=== PATIENT | female | born 1950 | race Caucasian/White ===

== ENCOUNTER 2023-01-11 09:13 | Outpatient (AMB) | payer MEDICARE, SELFPAY ==
--- NOTE | 2023-01-11 09:21 | MHC.OFFWIV ---
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 She does note on December 23 she was seen in emergency department for shortness of breath she was negative for COVID at that time. Over the past week the ear fullness and sinus pain is worsened with some thicker needle discharge. She has tried several OTC medications with little relief. She has myasthenia gravis at baseline she is not experiencing any difficulty breathing or swallowing or focal weakness at this time. [facility] Social History Patient Tobacco Use Status: Never used Tobacco Review of Systems Const Reports as per HPI and Reports no additional complaints Eyes Reports no additional complaints ENT Reports no additional complaints and Reports as per HPI Card Reports as per HPI and Reports no additional complaints Resp Reports as per HPI and Reports no additional complaints Musc Reports no additional complaints and Reports as per HPI Skin/Breast Denies lesions Neuro Reports no additional complaints and Reports as per HPI Physical Exam Vital Signs: Last Vital Signs Temp 97.9 F 01/11/23 09:22 Pulse 72 01/11/23 09:22 BP 124/70 01/11/23 09:22 Pulse Ox 98 01/11/23 09:22 BMI result Body Mass Index 32.9 Const General: cooperative, comfortable, no acute distress and tired appearing Orientation/consciousness: patient oriented x3 HEENT Head: Yes normal to inspection Ears: hearing grossly normal bilaterally, external ears normal and left TM abnormal (Dull light reflex with clear fluid noted behind TM) Face and sinus: Yes normal facial exam and Yes sinus tenderness (maxiallary and frontal) Mouth: Normal oral and palatal mucosa present Throat: Yes posterior oropharynx normal Eyes Conjunctivae: conjunctivae normal Sclerae: sclerae normal Neck Neck: Yes no lymphadenopathy Resp Effort & Inspection: normal respiratory effort Auscultation: clear to auscultation bilaterally Cardio Rate: regular rate Rhythm: regular rhythm Heart sounds: S1 normal heart sound present and S2 normal heart sound present Neuro General: patient oriented x3 Extrem General: Yes no pedal edema Assessment & Plan Assessment & Plan (1) Sinusitis: Code(s): J32.9 - Chronic sinusitis, unspecified Qualifiers: Sinusitis location: maxillary Chronicity: acute Plan: Will treat for sinusitis with Augmentin. Viral swab collected today will report results as available can continue OTC medication as needed. Return to clinic if symptoms do not improve over the next 5-7 days or worsen in any way. Orders: Orders SARS-CoV2/FLU/RSV Today J32.9 - Chronic sinusitis, unspecified Medications: New amoxicillin-pot clavulanate 875-125 mg 1 tab PO Q12H 10 days 20 tabs 0RF Coding Level of Care Code Est Pt Level 3 (47973) Diagnoses Sinusitis J32.9 Sinusitis location: maxillary Chronicity: acute
[2023-01-11 09:22] VITALS: BP 124/70; PULSE 72; TEMP 36.6; O2SAT 98; BMI 32.9
== END 2023-01-11 09:44 | disposition home or self-care (01) ==
PROVIDERS: PCP Internal Medicine; Visit Provider Physician Assistant
DX: J32.9 Chronic sinusitis, unspecified (principal)
CPT/HCPCS: 99213

== ENCOUNTER 2023-01-11 09:50 | Outpatient (REF) | payer MEDICARE, SELFPAY ==
[2023-01-11 14:25] LABS: Influenza A PCR NEGATIVE (Negative); Influenza B PCR NEGATIVE (Negative); Resp Syncy Virus RNA Qual PCR NEGATIVE (Negative); SARS COV2 PCR INHOUSE NEGATIVE (Negative)
== END 2023-01-11 09:51 | disposition home or self-care (01) ==
LOC: HO.LAB 09:50
PROVIDERS: Visit Provider Physician Assistant
DX: J32.9 Chronic sinusitis, unspecified (principal); Z20.822 Contact with and (suspected) exposure to COVID-19
CPT/HCPCS: 0241U

== ENCOUNTER 2023-03-31 11:31 | Outpatient (AMB) | payer MEDICARE, SELFPAY ==
--- NOTE | 2023-03-31 13:05 | MHC.OFFWIV ---
Intake Vital Signs 03/31/23 13:07 Height 5 ft Weight 170 lb 8 oz BMI 33.3 BP 142/70 H Blood Pressure Location Lt brachial Position Sitting Pulse 69 Pulse Source Pulse Oximeter Temp 97.1 F Temp Source Temporal Artery Scan Pulse Oximetry (%) 98 Oxygen Delivery Method Room Air Intake Visit Reasons: EST/ear pain in both ears (lobby masked) Intake Note: pt is here today for ear pain in both ears started 2 weeks Patient Tobacco Use Status: Never used Tobacco Allergies Sulfa (Sulfonamide Antibiotics) Allergy (Intermediate, Verified 03/31/23 13:28) Unknown aspirin [ASPIRIN] Allergy (Unknown, Verified 03/31/23 13:07) UPSET STOMACH Medication List - Last Reconciled 03/31/23 by CHRISTIN Fenton albuterol sulfate 90 mcg/actuation inhalation amoxicillin-pot clavulanate 875-125 mg 1 tab PO Q12H 10 days atorvastatin 20 mg PO DAILY blood sugar diagnostic (FreeStyle Test strips) As directed duloxetine 60 mg PO DAILY fluticasone propionate 50 mcg/actuation sprays intranasal levothyroxine 112 mcg PO DAILY lisinopril 40 mg PO DAILY metformin 500 mg PO TID mycophenolate mofetil 1,000 mg PO BID pantoprazole 40 mg PO BID pyridostigmine bromide ER mg PO spironolactone 25 mg PO DAILY sucralfate 1 g PO QID Do you need a note to return to daycare/school/sports/work: Yes HPI HPI Comments History of Present Illness Details Patient is a 72-year-old female in today with a sick visit. She states that 2 weeks ago she started to feel headache, ear pain, sore throat, cough. She has used [id number] medication with limited effect. She has a past medical history significant for asthma, diabetes type 2, myasthenia gravis. She states that no one else at home is sick, has not traveled recently. Denies any dizziness, chest pain, shortness a breath, vomiting, diarrhea. Will obtain upper respiratory swab. PFSH Social History Patient Tobacco Use Status: Never used Tobacco Review of Systems Const Details: Constitutional : No Weight loss, No Fever, No Chills, Admits Fatigue, No Malaise ENT/Mouth : No sore throat, Admits bilateral ear pain. Admits sinus tenderness. Eyes: No Eye Pain, No Swelling, No Redness Cardiovascular : No Chest Pain, No SOB, No Dyspnea on Exertion, No Orthopnea, No Edema, No Palpitations Respiratory : No Cough, No Sputum, No Wheezing Gastrointestinal : No Nausea, No Vomiting, No Diarrhea, No Constipation, No abdominal Pain, No Hematochezia, No Melena Neuro : No Weakness, No Numbness, No Dizziness, No Headache All other systems reviewed and are negative Physical Exam Vital Signs: Last Vital Signs Temp 97.1 F 03/31/23 13:07 Pulse 69 03/31/23 13:07 BP 142/70 H 03/31/23 13:07 Pulse Ox 98 03/31/23 13:07 Oxygen Delivery Method Room Air 03/31/23 13:07 BMI result Body Mass Index 33.3 Patient vital signs reviewed stable Const Other: Appearance: Alert.? Oriented X3.? No acute distress.? Head: Normocephalic, atraumatic, no step-offs or deformities Eyes: Pupils equal, round and reactive to light.? ENT: Pharynx normal.?Sinus tenderness. Erythema and effusion of left TM. No mastoid tenderness. Neck: Normal inspection.? Neck supple.?Full ROM. CVS: Normal heart rate and rhythm.? Pulses normal.? Respiratory: No respiratory distress.? Breath sounds normal.? Neuro: Oriented X 3.? No motor deficit.? No sensory deficit. CN 2-12 intact Results Reviewed Results Reviewed: Will call patient with swab results. Assessment & Plan Assessment & Plan (1) Otitis media of left ear: Comment: Patient will be given Augmentin and prednisone to be taken as directed. Patient has been educated on signs of worsening symptoms and when to report back to the walk-in or when to present to the emergency room. Code(s): H66.92 - Otitis media, unspecified, left ear Qualifiers: Otitis media type: unspecified Qualified Code(s): H66.92 - Otitis media, unspecified, left ear Plan: Take your medications as prescribed. If you were prescribed antibiotics today, it is important that you take your medication to their entirety, do not skip any doses, do not finish them early. Follow-up with your primary care provider this week. Return to the emergency department with new or worsening symptoms. Such as fevers, chills, chest pain, shortness of breath, nausea, vomiting, dizziness, headache, vision changes, lethargy In case of emergency call 911 Coding Level of Care Code Est Pt Level 3 (12496) Diagnoses Left otitis media, unspecified otitis media type H66.92 Otitis media type: unspecified Time Spent (min) 20
[2023-03-31 13:07] VITALS: BP 142/70; PULSE 69; TEMP 36.2; O2SAT 98; BMI 33.3
== END 2023-03-31 14:16 | disposition home or self-care (01) ==
PROVIDERS: PCP Internal Medicine; Visit Provider Nurse Practitioner Primary Care
DX: H66.92 Otitis media, unspecified, left ear (principal)
CPT/HCPCS: 99213

== ENCOUNTER 2023-03-31 18:34 | Outpatient (REF) | payer MEDICARE, SELFPAY ==
[2023-03-31 19:30] LABS: Influenza A PCR NEGATIVE (Negative); Influenza B PCR NEGATIVE (Negative); Resp Syncy Virus RNA Qual PCR NEGATIVE (Negative); SARS COV2 PCR INHOUSE NEGATIVE (Negative)
== END 2023-03-31 18:35 | disposition home or self-care (01) ==
LOC: HO.HMGCLNP 18:34
PROVIDERS: Visit Provider Nurse Practitioner Primary Care
DX: J06.9 Acute upper respiratory infection, unspecified (principal); Z11.52 Encounter for screening for COVID-19
CPT/HCPCS: 0241U

== ENCOUNTER 2023-08-03 14:14 | Outpatient (AMB) | payer MEDICARE, SELFPAY ==
--- NOTE | 2023-08-03 14:18 | AM.OFFWIN_ITS ---
Intake Vital Signs 08/03/23 14:19 Height 5 ft Weight 174 lb BMI 34.0 BP 160/90 H Blood Pressure Location Lt brachial Position Sitting Pulse 95 Pulse Source Pulse Oximeter Temp 97.6 F Temp Source Temporal Artery Scan Pulse Oximetry (%) 96 Oxygen Delivery Method Room Air Intake Visit Reasons: EP chest/head congestion Intake Note: pt is here today for chest head congestion started 5 days ago Patient Tobacco Use Status: Never used Tobacco Allergies Sulfa (Sulfonamide Antibiotics) Allergy (Intermediate, Verified 08/03/23 14:23) Unknown aspirin [ASPIRIN] Allergy (Unknown, Verified 08/03/23 14:23) UPSET STOMACH Do you need a note to return to daycare/school/sports/work: No HPI HPI Comments History of Present Illness Details 73-year-old female who comes in today co mplaining of bilateral ear pain nasal congestion and a cough for 5 days. She denies any shortness a breath or chest pain but does have myalgias and fatigue PFSH Social History Patient Tobacco Use Status: Never used Tobacco Review of Systems Const Reports no additional complaints, Reports fatigue, Reports fever(s) and Reports malaise Eyes Reports no additional complaints ENT Reports otalgia and Reports nasal congestion Card Reports no additional complaints Resp Reports cough GI Reports no additional complaints Endo Reports fatigue Physical Exam Vital Signs: Last Vital Signs Temp 97.6 F 08/03/23 14:19 Pulse 95 08/03/23 14:19 BP 160/90 H 08/03/23 14:19 Pulse Ox 96 08/03/23 14:19 Oxygen Delivery Method Room Air 08/03/23 14:19 BMI result Body Mass Index 34.0 Const General: in distress HEENT Head: Yes normal to inspection, Yes normocephalic and Yes atraumatic Ears: hearing grossly normal bilaterally and TM abnormal (Right ear) bulging and erythematous General nose exam: Normal external nose present Face and sinus: Yes normal facial exam and Yes face symmetric Throat: Yes other (Posterior pharynx erythema) Resp Effort & Inspection: normal respiratory effort Auscultation: clear to auscultation bilaterally Cardio Rate: regular rate Rhythm: regular rhythm Heart sounds: S1 normal heart sound present and S2 normal heart sound present Results AMB Rapid Strep AMB Rapid Strep Negative Last Edit by Mary Anne Garcia CMA on 08/03/23 14:33 Results Reviewed Results Reviewed: Laboratory Last Values Strep Scn [facility] Negative 08/03/23 14:32 Rapid strep done in the office today was negative. Assessment & Plan Assessment & Plan (1) Sore throat: Code(s): J02.9 - Acute pharyngitis, unspecified Plan Going to send a viral swab for evaluation and treated for otitis media. Orders: Orders SARS-CoV2/FLU/RSV Today J02.9 - Acute pharyngitis, unspecified AMB Rapid Strep Screen Today Z13.9 - Encounter for screening, unspecified Medications: New amoxicillin 875 mg PO BID 14 tabs 0RF 7 days Coding Level of Care Code Est Pt Level 3 (12451) Diagnoses Sore throat J02.9
[2023-08-03 14:19] VITALS: BP 160/90; PULSE 95; TEMP 36.4; O2SAT 96; BMI 34.0
== END 2023-08-03 14:36 | disposition home or self-care (01) ==
PROVIDERS: PCP Internal Medicine; Visit Provider Physician Assistant Medical
DX: J02.9 Acute pharyngitis, unspecified (principal)
CPT/HCPCS: 87880; 99213

== ENCOUNTER 2023-08-03 14:32 | Outpatient (REF) | payer MEDICARE, SELFPAY ==
[2023-08-03 18:02] LABS: Influenza A PCR NEGATIVE (Negative); Influenza B PCR NEGATIVE (Negative); Resp Syncy Virus RNA Qual PCR NEGATIVE (Negative); SARS COV2 PCR INHOUSE NEGATIVE (Negative)
== END 2023-08-03 14:33 | disposition home or self-care (01) ==
LOC: HO.LAB 14:32
PROVIDERS: Visit Provider Physician Assistant Medical
DX: J02.9 Acute pharyngitis, unspecified (principal)
CPT/HCPCS: 0241U

== ENCOUNTER 2023-09-07 11:21 | Outpatient (AMB) | payer MEDICARE, SELFPAY ==
[2023-09-07 11:43] VITALS: BP 120/80; PULSE 74; TEMP 36.2; O2SAT 95; BMI 32.2
--- NOTE | 2023-09-07 11:43 | MHC.OFFWIV ---
Intake Vital Signs 09/07/23 11:43 Height 5 ft Weight 165 lb BMI 32.2 BP 120/80 Blood Pressure Location Lt brachial Position Sitting Pulse 74 Pulse Source Pulse Oximeter Temp 97.2 F Temp Source Temporal Artery Scan Pulse Oximetry (%) 95 Oxygen Delivery Method Room Air Intake Visit Reasons: EP Ear ache, sore throat, headache (masked) Intake Note: pt is here today for ear ache sore throat headache started 1 week ago Patient Tobacco Use Status: Never used Tobacco Allergies Sulfa (Sulfonamide Antibiotics) Allergy (Intermediate, Verified 09/07/23 11:46) Unknown aspirin [ASPIRIN] Allergy (Unknown, Verified 09/07/23 11:46) UPSET STOMACH Medication List - Last Reconciled 09/07/23 by CHRISTIN Fenton albuterol sulfate 90 mcg/actuation inhalation atorvastatin 20 mg PO DAILY blood sugar diagnostic (FreeStyle Test strips) As directed duloxetine 60 mg PO DAILY fluticasone propionate 50 mcg/actuation sprays intranasal levothyroxine 112 mcg PO DAILY lisinopril 40 mg PO DAILY metformin 500 mg PO TID mycophenolate mofetil 1,000 mg PO BID pantoprazole 40 mg PO BID pyridostigmine bromide ER mg PO spironolactone 25 mg PO DAILY sucralfate 1 g PO QID Do you need a note to return to daycare/school/sports/work: No HPI HPI Comments History of Present Illness Details Patient is a 73-year-old female in today for sick visit. Patient states that for the past week she has developed symptoms of cough, left ear pain, sinus tenderness. Patient has history of recurrent ear infections. States this feels similar to those in the past. Patient was seen in office for similar symptoms 1 month prior was given amoxicillin with moderate effect. Patient denies fevers or chills, denies chest pain or shortness of breath, denies nausea vomiting or diarrhea PFSH Social History Patient Tobacco Use Status: Never used Tobacco Review of Systems Const All systems reviewed & are unremarkable except as noted in HPI and below Denies chills, Denies fever(s) and Denies headache(s) Eyes Denies blurry vision and Denies diplopia ENT Denies vertigo, Denies dizziness, Reports otalgia, Denies headache(s) and Reports sore throat Card Denies chest pain and Denies dyspnea Resp Denies dyspnea GI Denies diarrhea, Denies nausea and Denies vomiting Neuro Denies vertigo, Denies dizziness and Denies headache(s) Physical Exam Vital Signs: Last Vital Signs Temp 97.2 F 09/07/23 11:43 Pulse 74 09/07/23 11:43 BP 120/80 09/07/23 11:43 Pulse Ox 95 09/07/23 11:43 Oxygen Delivery Method Room Air 09/07/23 11:43 BMI result Body Mass Index 32.2 Const Other: Appearance: Alert.? Oriented X3.? No acute distress.? Head: Normocephalic, Eyes: Pupils equal, round and reactive to light.?Sclera white. ENT: Pharynx erythema, +cobblestoned. Right TM intact and pearly haines. Left TM erythema and effusion. ? Neck: Normal inspection.? Neck supple.? CVS: Normal heart rate and rhythm.? Pulses normal.? Respiratory: No respiratory distress.? Breath sounds normal.? Neuro: Oriented X 3.? No motor deficit.? No sensory deficit. CN 2-12 intact Results AMB Rapid Strep AMB Rapid Strep Negative Last Edit by Samantha Jimenez MA on 09/07/23 12:31 Assessment & Plan Assessment & Plan (1) Otitis media of left ear: Comment: Patient will be given doxycycline. Patient has been educated the side effects of this medication. Patient has been educated on signs of worsening symptoms and when to report back to the walk-in or when to present to the ED Code(s): H66.92 - Otitis media, unspecified, left ear Qualifiers: Otitis media type: unspecified Qualified Code(s): H66.92 - Otitis media, unspecified, left ear Plan: Take your medications as prescribed. If you were prescribed antibiotics today, it is important that you take your medication to their entirety, do not skip any doses, do not finish them early. Follow-up with your primary care provider this week. Return to the emergency department with new or worsening symptoms. Such as fevers, chills, chest pain, shortness of breath, nausea, vomiting, dizziness, headache, vision changes, lethargy In case of emergency call 911 Plan follow up with PCP. Orders: Orders SARS-CoV2/FLU/RSV Today J06.9 - Acute upper respiratory infection, unspecified Medications: New doxycycline hyclate 100 mg PO BID 14 caps 0RF Coding Level of Care Code Est Pt Level 3 (05255) Diagnoses Left otitis media, unspecified otitis media type H66.92 Otitis media type: unspecified Time Spent (min) 23
== END 2023-09-07 12:42 | disposition home or self-care (01) ==
PROVIDERS: PCP Internal Medicine; Visit Provider Nurse Practitioner Primary Care
DX: H66.92 Otitis media, unspecified, left ear (principal)
CPT/HCPCS: 99213

== ENCOUNTER 2023-09-07 13:37 | Outpatient (REF) | payer MEDICARE, SELFPAY ==
[2023-09-07 14:52] LABS: Influenza A PCR NEGATIVE (Negative); Influenza B PCR NEGATIVE (Negative); Resp Syncy Virus RNA Qual PCR NEGATIVE (Negative); SARS COV2 PCR INHOUSE NEGATIVE (Negative)
== END 2023-09-07 13:38 | disposition home or self-care (01) ==
LOC: HO.LNP 13:37
PROVIDERS: Visit Provider Nurse Practitioner Primary Care
DX: J06.9 Acute upper respiratory infection, unspecified (principal)
CPT/HCPCS: 0241U

== ENCOUNTER 2024-01-11 10:00 | Emergency (ER) | payer MEDICARE, SELFPAY ==
--- NOTE | 2024-01-11 | ECG_ITS ---
Test Reason : epigastric pain Blood Pressure : / mmHG Vent. Rate : 087 BPM Atrial Rate : 087 BPM P-R Int : 164 ms QRS Dur : 074 ms QT Int : 330 ms P-R-T Axes : 072 014 072 degrees QTc Int : 397 ms Normal sinus rhythm Possible Inferior infarct , age undetermined Abnormal ECG When compared with ECG of 18-SEP-2011 10:50, Borderline criteria for Inferior infarct are now Present Referred By: Generic ED Physician Electronically Signed By:GENARO MARTINEZ
--- NOTE | ~2024-01-11 | CT_ITS ---
EXAMINATION: CT ABDOMEN AND PELVIS WITH CONTRAST CLINICAL INFORMATION: Right sided abdominal pain and tenderness COMPARISON: None available. TECHNIQUE: Multidetector volumetric images were obtained from the superior aspect of the liver through the pubic symphysis following administration 85 mL of Omnipaque 350 intravenous contrast. Sagittal and coronal reformatted images were obtained on the technologist's workstation. Oral contrast: No This CT examination was performed using dose optimization techniques as appropriate, variously including the following: *Automated exposure control *Adjustment of mA and/or kV according to patient size (this includes techniques or standardized protocols for targeted exams where dose is matched to indication/reason for exam; i.e. extremities or head) *Use of iterative reconstruction technique DLP: 525 mGy-cm FINDINGS: LUNG BASES: The visualized lung bases are unremarkable. LIVER, GALLBLADDER, AND BILIARY TREE: The liver is normal in size, shape, and attenuation. No focal hepatic lesion or biliary ductal dilatation is present. The gallbladder is unremarkable with no evidence of radiopaque gallstones, gallbladder wall thickening, or obvious pericholecystic inflammatory changes. PANCREAS: Unremarkable. SPLEEN: Unremarkable. ADRENAL GLANDS: Unremarkable. KIDNEYS AND URETERS: The kidneys are normal in size, shape, and attenuation. Bilateral benign Bosniak class I renal cysts are noted which require no additional imaging or follow-up. No solid renal masses are seen. No hydronephrosis, hydroureter, or calculi seen. No perinephric stranding. BLADDER: Unremarkable. GASTROINTESTINAL TRACT: The small and large bowel are unremarkable. The appendix is not identified with certainty but there is certainly no evidence to suggest the presence of appendicitis. ABDOMINAL WALL: No significant hernia is appreciated. LYMPH NODES: Normal. VASCULAR: Unremarkable. PELVIC VISCERA: Unremarkable. OSSEOUS STRUCTURES: Unremarkable. Degenerative changes are present in the spine. CT/CT abdomen pelvis w IV con IMPRESSION: A cause for the patient's right-sided abdominal pain and tenderness has not been found. Fleischner guidelines were followed. Electronically signed by: Juan A Piña MD 01/11/2024 03:49 PM EDT
[2024-01-11 10:02] VITALS: BP 121/65; PULSE 100; RESP 18; TEMP 36.4; O2SAT 98; BMI 29.5
[2024-01-11 10:25] LABS: MANUAL DIFF FLAG NO
[2024-01-11 10:43] LABS: Alanine Aminotransferase 10 U/L (0-31); Albumin Level 4.5 g/dL (3.5-5.0); Alkaline Phosphatase 72 U/L (39-117); Anion Gap 14 (12-20); Aspartate Amino Transferase 13 U/L (5-31); Basophils Percent Auto 0.4 % (0-2); Bilirubin Direct 0.2 mg/dL (0.0-0.5); Bilirubin Total 0.6 mg/dL (0.0-1.0); Blood Urea Nitrogen 18 mg/dL (9-16); Calcium 9.8 mg/dL (8.4-10.2); Carbon Dioxide 19 mmol/L (22-29); Chloride 109 mmol/L (96-108); Creatinine Clr Calc Pharmacy 36.5; Eosinophils Absolute Auto 0.2 X10*3/uL (0.0-0.4); Eosinophils Percent Auto 2.1 % (0-4); Estimated Glomerular Filt Rate 46; Glucose Random 196 mg/dL (60-115); Hematocrit 41.1 % (37.0-47.0); Hemoglobin 13.2 g/dl (12.0-16.0); Imm Gran Abs Auto 0.02 X10*3/uL (0.00-0.03); Imm Gran Pct Auto 0.2 % (0.0-0.4); Lipase 32 U/L (8-78); Lymphocytes Absolute Auto 2.1 X10*3/uL (1.2-4.9); Lymphocytes Percent Auto 25.3 % (20-40); Mean Corpuscular HGB Conc 32.1 g/dl (31.0-35.0); Mean Corpuscular Hemoglobin 29.1 pg (27.0-33.0); Mean Corpuscular Volume 90.7 fL (80.0-98.0); Mean Platelet Volume 11.2 fL (9.4-12.3); Monocytes Absolute Auto 0.9 X10*3/uL (0.1-1.2); Monocytes Percent Auto 10.1 % (2-11); Neutrophils Absolute Auto 5.2 x10*3/uL (2.0-8.3); Neutrophils Percent Auto 61.9 % (45-73); Platelet Count 246 X10*3/uL (160-400); Potassium 3.6 mmol/L (3.3-5.1); Red Blood Count 4.53 X10*6/uL (4.20-5.50); Red Cell Distribution Width 12.9 % (11.0-16.0); Sodium 138 mmol/L (135-145); Total Protein 6.9 g/dL (6.5-8.0); White Blood Count 8.4 X10*3/uL (4.8-10.8)
--- NOTE | 2024-01-11 11:42 | ED_ITS ---
HPI - General Adult General Chief complaint: Abdominal Pain Stated complaint: abd pain Time Seen by Provider: 01/11/24 11:42 History of Present Illness ED Provider: Constantine MOCTEZUMA narrative: The patient is a 73-year-old woman who comes to the emergency room with a complaint of upper abdominal pain that has been bothering her for several days. She says that a couple of weeks ago she also had bilateral flank pain. She had also had a period of loose yellow stools. She has had nausea and weakness. The patient has a history of gastritis and is on pantoprazole, famotidine, and sucralfate already. She has had no fevers, sweats, chills. Related Data Home Medications ?Medication ?Instructions ?Recorded ?Confirmed albuterol sulfate 90 mcg/actuation inhalation 01/11/23 09/07/23 aerosol inhaler atorvastatin 20 mg tablet 20 mg PO DAILY 01/11/23 09/07/23 blood sugar diagnostic (Freeyle #10 ea 01/11/23 09/07/23 Test strips) duloxetine 60 mg capsule,delayed 60 mg PO DAILY 01/11/23 09/07/23 release fluticasone propionate 50 spray intranasal 01/11/23 09/07/23 mcg/actuation nasal spray,suspension levothyroxine 112 mcg tablet 112 mcg PO DAILY 01/11/23 09/07/23 lisinopril 40 mg tablet 40 mg PO DAILY 01/11/23 09/07/23 metformin 500 mg tablet 500 mg PO TID 01/11/23 09/07/23 mycophenolate mofetil 500 mg tablet 1,000 mg PO BID 01/11/23 09/07/23 pantoprazole 40 mg tablet,delayed 40 mg PO BID 01/11/23 09/07/23 release pyridostigmine bromide 180 mg mg PO 01/11/23 09/07/23 tablet,extended release spironolactone 25 mg tablet 25 mg PO DAILY 01/11/23 09/07/23 sucralfate 1 gram tablet 1 g PO QID 01/11/23 09/07/23 Previous Rx's ?Medication ?Instructions ?Recorded doxycycline hyclate 100 mg capsule 100 mg PO BID #14 caps 09/07/23 Allergies Allergy/AdvReac Type Severity Reaction Status Date / Time Sulfa (Sulfonamide Allergy Intermediate Unknown Verified 01/11/24 10:09 Antibiotics) aspirin [ASPIRIN] Allergy Unknown UPSET Verified 01/11/24 10:09 STOMACH Review of Systems 2 Review of Systems: Yes all other systems are reviewed and are negative [facility] Social History Social History Patient Tobacco Use Status: Never used Tobacco Advance Directives: No Advance Directives Information Provided: Yes Do you have a plan to hurt others: No Plan Physical Exam ED Vital Signs: Vital Signs - 24 hr 01/11/24 10:02 01/11/24 12:30 01/11/24 14:07 Temperature 97.5 F 97.9 F 97.2 F Pulse Rate 100 73 79 Respiratory Rate 18 16 16 Blood Pressure 121/65 120/56 L 129/62 Pulse Oximetry 98 96 97 Oxygen Delivery Method Room Air Room Air Room Air 01/11/24 16:42 01/11/24 17:10 Temperature 97.1 F 97.1 F Pulse Rate 74 74 Respiratory Rate 16 16 Blood Pressure 124/66 124/66 Pulse Oximetry 97 97 Oxygen Delivery Method Room Air Room Air BMI result Body Mass Index 29.5 Const Other: The patient is awake and alert. She looks somewhat fatigued but not acutely ill. She is pleasant and cooperative. HENMT Other: Face is symmetrical. Mucous membranes moist. Eyes Other: Pupils are round equal, conjunctivae are clear, extraocular movements intact. Neck Other: Moving her neck easily Resp Effort & Inspection: normal respiratory effort Auscultation: clear to auscultation bilaterally Cardio Rate: regular rate Rhythm: regular rhythm Heart sounds: S1 normal heart sound present and S2 normal heart sound present GI Other: Abdomen exam reveals right upper quadrant tenderness and epigastric tenderness. Other areas of the abdomen are nontender. Back/Spine/Pelvis Other: No CVA percussion tenderness. Skin Other: The skin is dry and unremarkable Neuro Other: The patient is awake and alert with a normal mental status. Cranial nerves 2-12 are intact. She moves her extremities normally and appropriately. She seems neurologically intact. Extrem Other: No peripheral edema Medications Administered Discontinued Medications Generic Name Dose Route Start Last Admin Trade Name Freq PRN Reason Stop Dose Admin Famotidine 20 mg 01/11/24 12:47 01/11/24 12:59 Famotidine/Pf 20 Mg/2 Ml Vial IVPUSH 01/11/24 12:48 20 mg ONCE ONE Administration Sodium Chloride 1,000 mls @ 999 mls/hr 01/11/24 13:00 01/11/24 14:50 Ns IV 01/11/24 14:00 Infused .Q1H1M RUTH Infusion Iohexol 100 ml 01/11/24 14:31 01/11/24 14:32 Iohexol 350 Mg/Ml 100 Ml Infus..Btl IV 01/11/24 14:32 100 ml ONCE ONE Administration Medical Decision Making Medical Decision Making [facility] Narrative: The patient is a 73-year-old woman who presents with several days of upper abdominal pain. On exam she is tender in the right upper quadrant and in the epigastrium. Labs are unremarkable aside from some slight impairment of renal function. She was given IV fluids. A CT of the abdomen and pelvis was obtained. This does not show any acute findings. I suspect the patient has upper abdominal pain is an exacerbation of her gastritis. She is encouraged to make sure that she is taking the full doses of her pantoprazole, her famotidine, and her sucralfate. She should contact her PCP to discuss her kidney function. She should contact her insecticide maker to discuss her abdominal pains and what I think is her gastritis. She should return if worse. Lab Data 01/11/24 10:21 01/11/24 10:21 Labs: Lab Results 01/11/24 01/11/24 Range/Units 10: 11:54 WBC 8.4 (4.8-10.8) X10*3/uL RBC 4.53 (4.20-5.50) X10*6/uL Hgb 13.2 (12.0-16.0) g/dl Hct 41.1 (37.0-47.0) % MCV 90.7 (80.0-98.0) fL MCH 29.1 (27.0-33.0) pg MCHC 32.1 (31.0-35.0) g/dl RDW 12.9 (11.0-16.0) % Plt Count 246 (160-400) X10*3/uL MPV 11.2 (9.4-12.3) fL Immature Gran % (Auto) 0.2 (0.0-0.4) % Neut % (Auto) 61.9 (45-73) % Lymph % (Auto) 25.3 (20-40) % [place] % (Auto) 10.1 (2-11) % Eos % (Auto) 2.1 (0-4) % Baso % (Auto) 0.4 (0-2) % Lymph # (Auto) 2.1 (1.2-4.9) X10*3/uL [place] # (Auto) 0.9 (0.1-1.2) X10*3/uL Eos # (Auto) 0.2 (0.0-0.4) X10*3/uL Baso # (Auto) 0.0 (0.0-0.2) X10*3/uL Abs Immat Gran (auto) 0.02 (0.00-0.03) X10*3/uL Absolute Neuts (auto) 5.2 (2.0-8.3) x10*3/uL Absolute Nucleated RBC 0.000 (0.0-0.012) X10*3/uL Nucleated RBC % (auto) 0.0 (0.0-0.2) /100WBC Sodium 138 (135-145) mmol/L Potassium 3.6 (3.3-5.1) mmol/L Chloride 109 H (96-108) mmol/L Carbon Dioxide 19 L (22-29) mmol/L Anion Gap 14 (12-20) BUN 18 H (9-16) mg/dL Creatinine 1.15 (0.5-1.4) mg/dL Estim Creat Clear Calc 36.5 Estimated GFR 46 Random Glucose 196 H (60-115) mg/dL Calcium 9.8 (8.4-10.2) mg/dL Total Bilirubin 0.6 (0.0-1.0) mg/dL Direct Bilirubin 0.2 (0.0-0.5) mg/dL AST 13 (5-31) U/L ALT 10 (0-31) U/L Alkaline Phosphatase 72 (39-117) U/L C-Reactive Protein 0.64 H (< or = 0.50) mg/dL Total Protein 6.9 (6.5-8.0) g/dL Albumin 4.5 (3.5-5.0) g/dL Lipase 32 (8-78) U/L Urine Color Dark Yellow Urine Appearance Clear Urine pH 5.0 (5.0-9.0) Ur Specific Hooper >= 1.030 H (1.005-1.025) Urine Protein 30 (1+) H (Neg-Trace) mg/dL Urine Glucose (UA) Negative (Negative) mg/dL Urine Ketones Trace (Negative) mg/dL Urine Blood Negative (Negative) Urine Nitrite Negative (Negative) Ur Leukocyte Esterase Small (1+) H (Negative) Urine RBC 0-2 (0-2) /HPF Urine WBC 11-20 H (0-5) /HPF Ur Squamous Epith Cells 6-10 (0-2) /HPF Urine Bacteria 1+ (None Seen) Hyaline Casts >20 (0-2) /LPF Discharge Plan Discharge Clinical Impression: Epigastric abdominal pain, Gastritis, Mild renal insufficiency Patient Disposition: Home, Self-Care Additional Instructions: Continue your pantoprazole. Maximize your use of famotidine and sucralfate. Hold your metformin for 2 days. Drink a lot of fluids. Please contact your regular doctor's office tomorrow morning to make a follow up appointment. You should discuss your kidney function. Please also contact your gastroenterology office to discuss management of your symptoms of what seems to be gastritis. Return to the emergency room if significantly worse. Prescriptions: No Action pantoprazole 40 mg tablet,delayed release (DR/EC) 40 mg PO BID duloxetine 60 mg capsule,delayed release(DR/EC) 60 mg PO DAILY pyridostigmine bromide 180 mg tablet extended release PO fluticasone propionate 50 mcg/actuation spray,suspension intranasal (DME) FreeStyle Test Strip See Rx Instructions .ROUTE .MEDSUPPLY Qty: 10 Rx Instructions: As directed levothyroxine 112 mcg tablet 112 mcg PO DAILY lisinopril 40 mg tablet 40 mg PO DAILY mycophenolate mofetil 500 mg tablet 1,000 mg PO BID spironolactone 25 mg tablet 25 mg PO DAILY atorvastatin 20 mg tablet 20 mg PO DAILY albuterol sulfate 90 mcg/actuation HFA aerosol inhaler inhalation metformin 500 mg tablet 500 mg PO TID sucralfate 1 gram tablet 1 g PO QID doxycycline hyclate 100 mg capsule 100 mg PO BID Qty: 14 0RF Referrals: Mirela Murphy MD [Primary Care Provider] - (Mild worsening renal function, gastritis) Interventions: ED Discharge Assessment Last Done: 01/11/24 17:10 Discharge Date/Time: 01/11/24 17:12 Print Language: Mauritian
[2024-01-11 12:19] LABS: Appearance Urine Clear; Color Urine Dark Yellow; Glucose Urine UA Negative (Negative); Leukocyte Esterase Urine Small (1+) (Negative); Nitrite Urine Negative (Negative); Specific Gravity - Urine >= 1.030 (1.005-1.025); UMIC TRIGGER UACC YES; Urine Blood Negative (Negative); Urine Ketones Trace mg/dL (Negative); Urine Protein 30 (1+) mg/dL (Neg-Trace)
[2024-01-11 12:28] LABS: C Reactive Protein 0.64 mg/dL (< or = 0.50)
[2024-01-11 12:30] VITALS: BP 120/56; PULSE 73; RESP 16; TEMP 36.6; O2SAT 96
[2024-01-11 12:39] LABS: Bacteria Urine 1+ (None Seen); Hyaline Casts Urine >20 /LPF (0-2); RBC Urine 0-2 /HPF (0-2); UACC Culture Trigger YES
--- NOTE | 2024-01-11 12:40 | PC.NURSE ---
MD Fitch at bedside to evaluate patient.
[2024-01-11] MEDS: 0.9 % Sodium Chloride 1,000 ML 999 ML IV (12:57)
[2024-01-11] MEDS: Famotidine/PF 20 MG/2 ML VIAL IVPUSH (12:59)
--- NOTE | 2024-01-11 12:59 | PC.NURSE ---
IV established, IVF bolus/pepcid given per MAR. Pt denies complaints at this time.
--- NOTE | 2024-01-11 13:45 | PC.NURSE ---
Pt to CT Scan.
[2024-01-11 14:07] VITALS: BP 129/62; PULSE 79; RESP 16; TEMP 36.2; O2SAT 97
[2024-01-11] MEDS: iohexoL 350 MG/ML 100 ML INFUS..BTL IV (14:32)
[2024-01-11 16:42] VITALS: BP 124/66; PULSE 74; RESP 16; TEMP 36.2; O2SAT 97
[2024-01-11 17:10] VITALS: BP 124/66; PULSE 74; RESP 16; TEMP 36.2; O2SAT 97
== END 2024-01-11 17:12 | disposition home or self-care (01) ==
PROVIDERS: Emergency Provider Emergency Medicine; PCP Internal Medicine
DX: R10.13 Epigastric pain (principal); K29.70 Gastritis, unspecified, without bleeding; N28.9 Disorder of kidney and ureter, unspecified; Z79.899 Other long term (current) drug therapy
CPT/HCPCS: 36415; 74177; 80048; 80076; 81001; 83690; 85025; 86140; 87086; 93005; 96361; 96374; 99284; Q9967